=== PATIENT | male | born 1990 | race Caucasian/White ===

== ENCOUNTER → 2019-05-17 | Day surgery (SDC) | payer OTHER ==
[~2019-05-17] MED LIST: OXYCODONE HCL 55 MG PO
--- NOTE | 2019-05-21 11:07 | PATH ---
[facility] [address] [place] [address] PATHOLOGY RPT PROCEDURE Name: MARÍA FRANKS Room: [facility].#: [id number] Admission: 05/17/19 Date of : 89 Discharge: Report #: [id number] Path Case #: [id number] [facility] Accession Number: [id number] . 01 Material submitted: . hernia - CORD LIPOMA AND HERNIA SAC . 01 Clinical history: . Right inguinal hernia. . 02 Diagnosis: Cord lipoma and hernia sac: - Benign mesothelial-lined fibromembranous tissue and benign fat consistent with "cord lipoma". (RAFFY:pit; 05/21/2019) QTP 05/21/2019 0719 Local . 02 Electronically signed: . Alfonso Wick MD, Pathologist NPI- [id number] . 01 Gross description: . Received in formalin labeled "María Franks, cord lipoma and hernia sack" is a pink-harris membranous soft tissue sac measuring 3.9 x 2.3 x 0.5 cm, and an encapsulated portion of yellow-harris lobulated soft tissue mass measuring 6.0 x 2.5 x 1.7 cm. The membranous tissue is sectioned to reveal no nodules or areas of abnormality. The external surface of the mass is inked black. Upon sectioning, the cut surface is yellow-harris and lobulated without hemorrhage or necrosis. Sports Team Marketing Intern sections are submitted as follows: A1 sales representative business courses membranous tissue A2-A4 sales representative business courses mass ([facility] [place] 05/19/2019) SY/[facility] 05/19/[address] [place] [address] . Pathologist provided ICD-10: D17.6 . 02 CPT . 453337 Specimen Comment: A courtesy copy of this report has been sent to Specimen Comment: [phone], . Specimen Comment: Report sent to / DR MAGALLON Performed at: [address] [id number] MD Radames Wu MD Phone: [phone] Performed at: [address] [place] [address] PATHOLOGY RPT PROCEDURE Name: MARÍA FRANKS Room: [facility]#: [id number] Admission: 05/17/19 Date of : 89 Discharge: Report #: [id number] Path Case #: [id number] [address] ROYER Leung [id number] MD Alfonso Wick MD Phone: [phone]
--- NOTE | 2019-06-04 13:35 | OP ---
[address] [address] OPERATIVE REPORT Name: JAYLA FRANKS Room: [facility].#: [id number] Admission: 05/17/19 Attend Phys: Qamar Batista DO Discharge: Date of : 89 Report #: [id number] THIS REPORT FOR: //name// CC: Qamar Warren Jr., DO DATE OF SERVICE: 05/17/2019 PREOPERATIVE DIAGNOSIS: Right inguinal hernia. POSTOPERATIVE DIAGNOSIS: Indirect right inguinal hernia. PROCEDURE: Open right inguinal hernia repair with 11 x [address] mesh and excision of right cord lipoma. SURGEON: Qamar Batista DO CHILD WELFARE ASSISTANT: Yaneth Salas MD SECOND CHILD WELFARE ASSISTANT: Student, So Constantino, MS4. ANESTHESIA: General endotracheal. ESTIMATED BLOOD LOSS: Less than 10 mL. COMPLICATIONS: None. DESCRIPTION OF PROCEDURE: After obtaining proper consents and discussing risks and complications with the patient, he was taken to the operating room, laid in the supine position, administered general endotracheal anesthetic. A timeout was then performed. We confirmed the appropriate patient and procedure. The site had been marked in the preoperative holding area. Preoperative antibiotics had been given. SCDs were in place. We then made a 5 cm long incision midway between the ASIS and pubic tubercle. This was carried down through the skin into the subcutaneous tissue using electrocautery for hemostasis. Once the external oblique fascia was encountered, it was incised along its fibers, grasped and elevated with hemostats and then dissected free from the underlying internal oblique muscle and ilioinguinal nerve. The internal oblique muscle was then split and the transversalis fascia was identified. This was done assuring no injury to the nerve. Once the transversalis fascia was identified, we identified the inferior epigastric vessels as well. The transversalis fascia was bluntly opened using a hemostat, the preperitoneal space was then entered and the inferior epigastric vessels were retracted medially. I then identified the spermatic cord. This was definitely thickened consistent with an inguinal hernia, indirect, which was going along the cord. [place] [address] OPERATIVE REPORT Name: JAYLA FRANKS WESLEY Room: [facility].#: [id number] Admission: 05/17/19 Attend Phys: Qamar Batista DO Discharge: Date of : 89 Report #: [id number] cord structures. We then identified the hernia sac and also a cord lipoma, which was going down into the defect. The hernia sac was first dissected free from the cord and reduced all the way back and then highly ligated using 0 PDS suture. The excess hernia sac was then excised and passed off as specimen. We then excised the cord lipoma. This was done using blunt dissection as well as electrocautery to assure hemostasis. The cord lipoma was then passed off as specimen as well. We then went back and developed the preperitoneal space well below the pubic ramus, all the way to the pubic symphysis and then dissected the preperitoneal space using blunt finger dissection to allow for placement of an 11 x [address] mesh. The mesh was then inserted opened in its entirety and sutured in place to the transversalis fascia in 2 different positions using 0 PDS suture. We then closed the internal oblique muscle over top of this as well using 0 PDS suture. The subcutaneous tissues and muscle were then injected with 0.5% Marcaine without epinephrine. The external oblique fascia was then closed using a running 0 Vicryl suture. The subcutaneous tissues were closed using 3-0 Vicryl suture and the skin was closed using a running 4-0 Monocryl subcuticular stitch. Mastisol, Steri-Strips, sterile OpSite and pressure dressings were placed. The patient was awakened in the operating room and transported to recovery room in stable condition. Sponge, needle and instrument counts were all correct x 3 at the end of the procedure. <ELECTRONICALLY SIGNED> By: Qamar Batista DO 06/04/19 1335 1113 [id number] enrique Batista DO /nt
== END | disposition home or self-care (01) ==
LOC: M.SUR 07:12
DX: K40.90 Unilateral inguinal hernia, without obstruction or gangrene, not specified as recurrent (principal); D17.6 Benign lipomatous neoplasm of spermatic cord; Z79.891 Long term (current) use of opiate analgesic